=== PATIENT | male | born 1945 | race Caucasian/White ===

== ENCOUNTER 2018-07-08 08:28 | Outpatient (CLI) | payer MEDICARE ==
--- NOTE | 2018-07-08 11:41 | CT ---
CT ABDOMEN AND PELVIS WITH AND WITHOUT IV CONTRAST: HISTORY: Microhematuria. Chronic prostatitis. COMPARISON: 11/25/2013 FINDINGS: There are old left-sided rib fractures. The lung bases are clear. The patient is post cholecystecto my. The liver, spleen, pancreas, and adrenal glands are normal. No calculi are seen in the kidneys, ureters, or urinary bladder. A small cyst (approximately 1 cm) i s seen at the inferior pole of the right kidney, which is stable since 11/25/2013. No enhancing donna l mass is seen. There is normal trace contrast excretion into the pelvicalyceal systems, ureters, an d urinary bladder. There is prostatic enlargement. No free air, free fluid, or lymphadenopathy is seen in the abdomen or pelvis. There are vascular pancho cifications without evidence of aneurysmal dilatation of the abdominal aorta. Degenerative changes a re present in the spine. A normal appearing appendix is present. There is sigmoid diverticulosis. Bilateral fat-containing inguinal hernias are present. IMPRESSION: 1. No CT evidence of urinary tract calculi or obstruction. 2. Small right renal cyst. 3. Sigmoid diverticulosis. 4. Prostatic enlargement. POS: [facility]
== END 2018-07-08 08:29 | disposition home or self-care (01) ==
LOC: BICCT 08:28
PROVIDERS: ATTEND Urology
DX: N41.1 Chronic prostatitis (principal); R31.29 Other microscopic hematuria; N28.1 Cyst of kidney, acquired; K57.30 Diverticulosis of large intestine without perforation or abscess without bleeding; N40.0 Benign prostatic hyperplasia without lower urinary tract symptoms
CPT/HCPCS: 74178

== ENCOUNTER 2018-08-08 07:34 | Outpatient (CLI) | payer MEDICARE ==
--- NOTE | 2018-08-08 10:44 | MRI ---
LEFT KNEE MRI WITHOUT IV CONTRAST: HISTORY: S83.242A, tear of medial meniscus left knee. History of left knee pain, history of left knee surgery . COMPARISON: 11/15/2008. FINDINGS: There is no significant abnormal joint effusion. There is an irregular posterior root tear of the me dial meniscus with more horizontal component tear extending from the posterior horn into the body. I t also demonstrates evidence for a posterior root tear with blunting as well as free edge irregularit y of primarily the body, evidence for a probable degenerative-type tear. There is a small osteochond ral focus involving the lateral aspect of the lateral femoral condyle without significant adjacent ab normal marrow edema. The anterior cruciate ligament appears intact. The posterior cruciate ligament appears to be somewhat thickened and has some increased signal within it compared to the prior 2008 study, evidence for posterior cruciate ligament mucoid degeneration versus some interstitial longitud inal incomplete tearing. Medial and lateral collateral ligaments appear intact. Quadriceps and thomas llar tendons are intact. Mild focal cartilage loss involving the central patellar facet and both med ial and lateral compartments. No significant acute abnormal marrow signal. IMPRESSION: Medial meniscal tear with irregular tear at the posterior root and a horizontal component tear extend ing into the body. Posterior root tear of the lateral meniscus with free edge irregularity and blunt ing of the body of the meniscus, evidence for tears. Somewhat thickened appearing PCL when compared to the prior study possibly representing some posterior cruciate ligament mucoid degeneration versus an incomplete thickness interstitial tear. Small osteochondral focus involving the lateral aspect of the lateral femoral condyle without significant abnormal adjacent marrow edema. Mild generalized ca rtilage loss. Motion artifact on numerous sequences lowers the sensitivity of this study. POS: [facility]
== END 2018-08-08 07:35 | disposition home or self-care (01) ==
LOC: TBSIIMAG 07:34
PROVIDERS: ATTEND Orthopaedic Surgery
DX: S83.242A Other tear of medial meniscus, current injury, left knee, initial encounter (principal)

== ENCOUNTER 2019-12-30 20:56 | Observation (INO) | payer MEDICARE ==
[2019-12-30 22:40] LABS: Troponin I Less than 0.010 ng/mL (< 0.028)
[2019-12-30] MEDS ORDERED: Morphine 4 MG/ML VIAL ONE (22:46)
[2019-12-30] MEDS ORDERED: Simethicone Chewable 80 MG TAB PO PRN (23:19)
[2019-12-30] MEDS ORDERED: Nitroglycerin 0.4 MG TAB (25 Tab Bottle) PO PRN (23:19)
[2019-12-30] MEDS ORDERED: HumaLOG 300 UNITS/3 ML VIAL SC PRN ×2 (23:19→23:51)
[2019-12-30] MEDS ORDERED: Dextrose 50% Abboject 50 ML SYRINGE SLOW IVP PRN (23:19)
[2019-12-30] MEDS ORDERED: Dextrose 5% in Water 1,000 ML IV PRN (23:19)
[2019-12-30] MEDS ORDERED: Ondansetron ODT 4 MG TAB SL PRN (23:20)
[2019-12-30] MEDS ORDERED: Ondansetron PF 4 MG/2 ML Vial IVP PRN (23:20)
[2019-12-30] MEDS ORDERED: Acetaminophen 325 MG TAB PO PRN (23:20)
[2019-12-30] MEDS ORDERED: Lidocaine 2% Viscous Solution 10 ML, Aluminum & Magnesium Hydroxide 30 ML SSW SCH (23:45)
[2019-12-30 23:55] VITALS: BMI 28.8
--- NOTE | 2019-12-31 00:44 | HP ---
PRIMARY CARE PHYSICIAN: Chavo Chavez MD. CHIEF COMPLAINT: Epigastric and chest pain. HISTORY OF PRESENT ILLNESS: The patient is a 74-year-old male with a past medical history significant for hypertension, hyperlipidemia, diabetes type 2. He presents to the ER today for pain in his stomach and chest. This morning he woke up and felt like he had a gas pocket in the lower right side of his abdomen. It worked its way up and across his chest to the nipple line. Currently, the pain is still sitting on the right hand side of his chest, but he also feels it in his upper epigastric area. He did continue to go to work today and just "felt bad" throughout the entire shift. When he got home, he made the decision to go to the ER and while his was driving him, he vomited one time. He stated that it did help some with the pain. He denies shortness of breath, diaphoresis or ill contacts. In the [place] ER, they gave him a GI cocktail and 2 morphine injections along with Zofran. His GI cocktail helped more than the morphine he stated. He completed an abdomen and pelvic CT while there. The patient was then transferred over to the [place] [facility]. In the [place] [facility], an EKG was performed, which shows sinus rhythm with a first-degree AV block and he was given a dose of morphine. PAST MEDICAL HISTORY: Hypertension, hyperlipidemia, diabetes type 2, atrial fibrillation. PAST SURGICAL HISTORY: Cholecystectomy, tonsillectomy, bilateral knee surgeries. ALLERGIES: NO KNOWN DRUG ALLERGIES. MEDICATIONS: Flomax 0.4mg PO daily [place] 3 1 cap PO BID Avodart 0.5 mg PO daily Aspirin 325 mg PO daily Norvasc 5 mg PO daily Vitamin D3 2000 unit PO daily Lisinopril 20 mg PO BID Synthroid 137 mcg PO daily Lantus 50 unit SQ qPM Januvia 100 mg PO daily metformin 1000 mg PO BID SOCIAL HISTORY: The patient lives with his at home. They are both retired lab workers, but still work p.r.n. Denies drinking alcohol, tobacco use or any illicit drug use. FAMILY HISTORY: Negative for anything significant at this time. REVIEW OF SYSTEMS: All other review of systems negative, listed in the chart. PHYSICAL EXAMINATION: VITAL SIGNS: Blood pressure 139/64, pulse 78, respiratory rate 22, temp 98 degrees oral, pain 5/10, O2 saturation 95% on room air. GENERAL: The patient appears nontoxic, in no apparent distress. HEAD: Atraumatic, normocephalic. Eyes, PERRLA. Extraocular muscles intact. NECK: Supple. Normal range of motion. Trachea is midline. No JVD. RESPIRATORY: Clear to auscultation bilaterally. No wheezing or rales. Normal chest expansion. CARDIOVASCULAR: Heart regular rate and rhythm. No murmurs, no gallops, no rubs. ABDOMEN: Slightly tender in the upper epigastric area and slightly distended. Bowel sounds normal. No pulsatile masses. No rigidity. No guarding. EXTREMITIES: Right lower extremity is slightly larger than the left. Patient has had multiple workups which reveal no DVT, multiple varicose veins. NEUROLOGIC: Speech normal. The patient, alert, oriented to person, place, and time. No focal deficits. PSYCHIATRIC: Normal affect. Normal behavior. LABORATORY DATA: White blood cells 8.3, hemoglobin 13.5, hematocrit 40.8, D- dimer 0.33. Sodium 137, potassium 4.5, BUN 22, creatinine 1.43, GFR 49, glucose 185. Troponin less than 0.010. Albumin 4.5. IMAGING: EKG sinus rhythm with first-degree AV block, 78 beats per minute. Chest x-ray showed no acute findings. CT of the abdomen and pelvis with contrast showed no significant change since his last one in 2018. IMPRESSION and PLAN: 1. Chest pain. Ordered a stress test for the morning due to the patient's risk factors, so far has had a negative cardiac workup. To be monitored on telemetry overnight. The patient has a autocad technician, Dr. Palmer. An echo has been ordered for the morning. Orthostatics to be completed with vital signs. 2. Epigastric pain. GI cocktail along with simethicone ordered to see if this helps to fully relieve the patient's pain 3. Hypertension, blood pressure stable at this time. We will continue home medications. 4. Hyperlipidemia- stable 5. Diabetes type 2. We will monitor blood sugars before meals and at bedtime and cover with sliding scale insulin. 6. Atrial fibrillation. Patient states that he will go in atrial fibrillation about twice a year and usually comes out of it within an hour or so, we will continue to monitor patient on telemetry overnight. 7. Gastrointestinal and deep venous thrombosis prophylaxis. 8. Full code. 9. Surrogate decision maker will be his Valeri Reid, phone . Discussed patient with Dr. Goins. Job ID: [id number] MTDD
[2019-12-31 02:34] LABS: Troponin I Less than 0.010 ng/mL (< 0.028)
[2019-12-31] MEDS ORDERED: Levothyroxine Sodium 25 MCG TAB PO SCH (06:00)
[2019-12-31] MEDS ORDERED: Nitroglycerin 2% Ointment 1 INCH/1 GM Packet TOP SCH (06:00)
[2019-12-31] MEDS ORDERED: Levothyroxine Sodium 112 MCG TAB PO SCH (06:00)
[2019-12-31] MEDS ORDERED: metFORMIN 500 MG TAB PO SCH (08:00)
[2019-12-31 08:08] VITALS: BP 146/67; TEMP 98.3
[2019-12-31] MEDS ORDERED: Lisinopril 20 MG TAB PO SCH (09:00)
[2019-12-31] MEDS ORDERED: Aspirin 325 MG TAB PO SCH (09:00)
[2019-12-31] MEDS ORDERED: Alogliptin 25 MG TAB PO SCH (09:00)
[2019-12-31] MEDS ORDERED: Amlodipine 5 MG TAB PO SCH (09:00)
[2019-12-31] MEDS ORDERED: Aspirin 325 mg Enteric Coated Tablet PO SCH (09:00)
[2019-12-31] MEDS ORDERED: Prevnar 13-Val Conj/PF 0.5 ML SYRINGE IM ONE (09:00)
[2019-12-31] MEDS ORDERED: Enoxaparin Sodium 40 MG/0.4 ML SYRINGE SC SCH (09:00)
[2019-12-31] MEDS ORDERED: Tamsulosin HCl 0.4 MG CAP PO SCH (09:00)
[2019-12-31] MEDS ORDERED: Dutasteride 0.5 MG CAP PO SCH (09:00)
[2019-12-31] MEDS ORDERED: Famotidine/PF 20 mg/2ml Vial SLOW IVP SCH (09:00)
[2019-12-31] MEDS ORDERED: Regadenoson 0.4 MG/5 ML SYRINGE ONE (09:14)
--- NOTE | 2019-12-31 11:52 | NM ---
Exam: Nuclear medicine cardiac stress with EF and wall motion History: Chest pain TECHNIQUE: Patient was administered 10 mCi of technetium 99m sestamibi for rest imaging and 31.50 mCi of technetium 99m sestamibi for stress imaging. Cardiac gating was performed FINDINGS: Homogeneous distribution of the radiotracer throughout the left ventricle. No filling defect. No reve rsibility. TID is 1.07 End-diastolic volume: 91 mL End systolic volume: 21 mL Cardiac gating: Normal wall motion and thickening. 77% ejection fraction IMPRESSION: 1. No reversibility or fixed defect 2. Normal wall motion and thickening. 77% ejection fraction.
[2019-12-31] MEDS ORDERED: Insulin Glargine 50 UNITS in Pre-Filled Syringe 1 EACH SC SCH (21:00)
[2019-12-31] MEDS ORDERED: Non-Formulary Item 1 EACH (Insulin Glargine,Hum.Rec.Anlog [Lantus Solostar] 50 UNIT) SQ SCH (21:00)
--- NOTE | 2020-01-01 02:03 | DIS ---
DATE OF ADMISSION: 12/30/2019 DATE OF DISCHARGE: 12/31/2019 FINAL DIAGNOSES: Abdominal/chest pain. Acute coronary syndrome was ruled out with normal troponin levels and radionucleotide stress test, which came back negative. LVEF was estimated at 77% and there was no any fixed or reversible defect. HOSPITAL COURSE: The patient is a 74-year-old male, who was admitted to the hospital with acute onset of abdominal pain, which primary started in the right groin, went up to the epigastric area at chest. The patient vomited during this episode, came to the emergency room for further evaluation. This was in bolus on the ER, where he received GI cocktail and two morphine injections along with Zofran and was transferred for further management and diagnostic workup to our hospital. During ER visit, his white count was normal. Hemoglobin was 13.8. D-dimer is 0.33. Sodium of 137, potassium 4.5, BUN 22, creatinine 1.43. EKG showed sinus rhythm with first-degree AV block, 7 to 8 beats per minute. Chest x-ray showed no acute findings and CT of the abdomen and pelvis with contrast showed no significant change since his last one in 2018. The patient got admitted to the telemetry floor. He had additional troponins done which came back normal and also he underwent nuclear medicine stress test, which showed LVEF estimated at 77% and nonreversible fixed defect was present during this examination. The patient is doing well. He does not have more pain anymore. He is able to ambulate without any discomfort. He is discharged home in good condition. His vitals within normal limits. DISCHARGE MEDICATIONS: His medications at the time of discharge: 1. Flomax 0.4 mg once a day. 2. [place]-3 fatty acids one capsule twice a day. 3. Avodart 0.5 mg daily. 4. Aspirin 325 mg daily. 5. Amlodipine 5 mg daily. 6. Ibuprofen 800 mg q.8 hours p.r.n. as needed. 7. Vitamin D3 of 2000 units once a day. 8. Lisinopril 20 mg twice a day. 9. Levothyroxine 137 mcg daily. 10. Insulin glargine 50 units once a day. 11. Sitagliptin, which is Januvia 100 mg once a day. 12. Metformin 1000 mg twice a day. FOLLOWUP: He is going to follow up with his primary care physician in 1 week to discuss possibility of GI evaluation, although he had several colonoscopies by Dr. Guillaume in the past and he was not to have any colonoscopy for at least 10 years. Job ID: [id number]
--- NOTE | 2020-01-09 13:00 | EKG ---
Test Reason : CP Blood Pressure : / mmHG Vent. Rate : 068 BPM Atrial Rate : 068 BPM P-R Int : 226 ms QRS Dur : 086 ms QT Int : 392 ms P-R-T Axes : 033 035 056 degrees QTc Int : 416 ms Sinus rhythm with 1st degree A-V block Otherwise normal ECG Confirmed by LUIS COLORADO DO ([id number]), fashion editor JORGE L YAP ([id number]) on 01/09/2020 1:00:24 PM Referred By: Confirmed By:LUIS COLORADO DO
== END 2019-12-31 13:55 | disposition home or self-care (01) ==
LOC: ERS 20:56 → 2NO 21:51
PROVIDERS: ADMIT Internal Medicine; ATTEND Internal Medicine
DX: R10.13 Epigastric pain (principal); R07.9 Chest pain, unspecified; I10 Essential (primary) hypertension; E78.5 Hyperlipidemia, unspecified; E11.9 Type 2 diabetes mellitus without complications; I48.91 Unspecified atrial fibrillation; Z79.4 Long term (current) use of insulin; Z79.82 Long term (current) use of aspirin; Z79.899 Other long term (current) drug therapy
CPT/HCPCS: 78452; 80061; 82962 ×2; 84484 ×2; 93005; 93017; 93306; 94760; 96372; 96374; 96376; 99285; A9500; G0378 ×3; 36415; 36416; J1650; J2270; J2785; S0028

== ENCOUNTER 2021-12-19 06:28 | Outpatient (CLI) | payer MEDICARE ==
[2021-12-19 08:06] LABS: Hemoglobin 14.8 g/dL (13.5-17.5); Mean Corpuscular HGB CONC 33.6 g/dL (32.0-36.0); Mean Corpuscular Hemoglobin 30.3 pg (27.0-33.0); Mean Corpuscular Volume 90.2 fl (81.2-95.1); Mean Platelet Volume 9.6 fl (7.4-10.4); Platelet Count 169 10x3/uL (150-450); RBC Distribution Width 14.3 % (11.5-14.5); Red Blood Cell (RBC) Count 4.88 10x6/uL (4.32-5.72); White Blood Cell (WBC) Count 7.1 10x3/uL (3.5-10.5)
[2021-12-19 08:17] LABS: PTT 25.9 sec (22.0-33.0); Prothrombin Time 10.7 sec (9.5-12.1)
[2021-12-19 08:31] LABS: Bilirubin Neg (Negative); Blood, Urine Negative (Negative); Clarity Clear (Clear); Glucose, Urine (Dipstick) >=1000 mg/dL (Negative); Ketone, Urine Negative (Negative); Leukocyte Negative (Negative); Nitrite Negative (Negative); Protein, Urine (Dipstick) Negative (Neg-Trace); Specific Gravity, Urine 1.015 (1.002-1.036); Urobilinogen Normal mg/dL (Less than 2)
[2021-12-19 08:37] LABS: Anion Gap 13 mmol/L (10-20); BUN (Urea Nitrogen) 17 mg/dL (8.4-25.7); Calc. Creatinine Clearance 0 mL/min (70-130); Calcium 9.4 mg/dL (7.8-10.44); Carbon Dioxide 28 mmol/L (23-31); Chloride 102 mmol/L (98-107); Glucose 119 mg/dL (83-110); Potassium 4.2 mmol/L (3.5-5.1); Sodium 139 mmol/L (136-145)
[2021-12-19 08:54] LABS: Bacteria/HPF None Seen HPF (None Seen); RBC/HPF 0-3 HPF (0-3); Squamous Epithelial None Seen HPF (0-3); WBC/HPF 0-3 HPF (0-3)
[2021-12-19 16:10] LABS: SARS-CoV-2 PCR by NAA Not Detected (NotDetected)
== END 2021-12-19 06:29 | disposition home or self-care (01) ==
LOC: LABBT 06:28
PROVIDERS: ATTEND Urology
DX: Z01.818 Encounter for other preprocedural examination (principal); Z12.5 Encounter for screening for malignant neoplasm of prostate; N41.1 Chronic prostatitis; E11.9 Type 2 diabetes mellitus without complications; N28.1 Cyst of kidney, acquired; N40.1 Benign prostatic hyperplasia with lower urinary tract symptoms; R35.0 Frequency of micturition; R81 Glycosuria; R16.1 Splenomegaly, not elsewhere classified; Z20.822 Contact with and (suspected) exposure to COVID-19
CPT/HCPCS: 80048; 81001; 85027; 85610; 85730; 87086; 93005; U0003; U0005; 93010

== ENCOUNTER 2021-12-20 06:12 | Day surgery (SDC) | payer MEDICARE ==
[2021-12-19 10:54] VITALS: BMI 29.4
[2021-12-20] MEDS ORDERED: Midazolam HCl 2 mg/2 ml Vial ONE (08:52)
[2021-12-20] MEDS ORDERED: Propofol 500 MG/50 ML VIAL ONE (08:53)
[2021-12-20] MEDS ORDERED: fentaNYL Citrate/PF 100 MCG/2 ML SYRINGE ONE (08:53)
[2021-12-20] MEDS ORDERED: Levofloxacin 500 mg/D5W 100 ml Premix Bag ONE (08:54)
[2021-12-20] MEDS ORDERED: Lidocaine 1% PF 5 ML VIAL ONE (09:01)
[2021-12-20] MEDS ORDERED: Dexamethasone 20 MG/5 ML VIAL ONE (09:01)
[2021-12-20] MEDS ORDERED: PROPOFOL 200 MG/20 ML VIAL ONE (09:01)
[2021-12-20] MEDS ORDERED: Phenazopyridine HCl 100 MG TAB ONE (10:01)
== END 2021-12-20 11:50 | disposition home or self-care (01) ==
LOC: SDC 06:12
PROVIDERS: ATTEND Urology
PROC: 0TJB8ZZ Inspection of Bladder, Via Natural or Artificial Opening Endoscopic (ICD-10-PCS; principal; 2021-12-20)
DX: N40.1 Benign prostatic hyperplasia with lower urinary tract symptoms (principal); N13.8 Other obstructive and reflux uropathy; N35.912 Unspecified bulbous urethral stricture, male; E78.5 Hyperlipidemia, unspecified; I10 Essential (primary) hypertension; E03.9 Hypothyroidism, unspecified; E11.9 Type 2 diabetes mellitus without complications; Z79.4 Long term (current) use of insulin; Z79.82 Long term (current) use of aspirin; Z79.84 Long term (current) use of oral hypoglycemic drugs; Z79.890 Hormone replacement therapy; Z79.899 Other long term (current) drug therapy
CPT/HCPCS: 36416; J1100; J1956; J2250; J2704

== ENCOUNTER 2022-01-12 10:55 | Outpatient (CLI) | payer MEDICARE ==
[2022-01-12 13:03] LABS: Bilirubin Neg (Negative); Blood, Urine Negative (Negative); Clarity Clear (Clear); Glucose, Urine (Dipstick) >=1000 mg/dL (Negative); Ketone, Urine Negative (Negative); Leukocyte Negative (Negative); Nitrite Negative (Negative); Protein, Urine (Dipstick) Negative (Neg-Trace); Urobilinogen Normal mg/dL (Less than 2)
[2022-01-12 13:04] LABS: Hemoglobin 14.3 g/dL (13.5-17.5); Mean Corpuscular HGB CONC 34.4 g/dL (32.0-36.0); Mean Corpuscular Hemoglobin 30.4 pg (27.0-33.0); Mean Corpuscular Volume 88.3 fl (81.2-95.1); Mean Platelet Volume 10.1 fl (7.4-10.4); Platelet Count 160 10x3/uL (150-450); RBC Distribution Width 14.5 % (11.5-14.5); Red Blood Cell (RBC) Count 4.71 10x6/uL (4.32-5.72); White Blood Cell (WBC) Count 7.5 10x3/uL (3.5-10.5)
[2022-01-12 13:11] LABS: Bacteria/HPF None Seen HPF (None Seen); RBC/HPF 0-3 HPF (0-3); Squamous Epithelial 0-3 HPF (0-3); WBC/HPF 0-3 HPF (0-3)
[2022-01-12 13:33] LABS: Anion Gap 18 mmol/L (10-20); BUN (Urea Nitrogen) 26 mg/dL (8.4-25.7); Calc. Creatinine Clearance 0 mL/min (70-130); Calcium 9.2 mg/dL (7.8-10.44); Carbon Dioxide 22 mmol/L (23-31); Chloride 99 mmol/L (98-107); Glucose 223 mg/dL (83-110); Potassium 4.9 mmol/L (3.5-5.1); Sodium 134 mmol/L (136-145)
== END 2022-01-12 10:56 | disposition home or self-care (01) ==
LOC: LABBT 10:55
PROVIDERS: ATTEND Urology
DX: Z01.812 Encounter for preprocedural laboratory examination (principal); N41.1 Chronic prostatitis; Z87.898 Personal history of other specified conditions; Z12.5 Encounter for screening for malignant neoplasm of prostate; N40.1 Benign prostatic hyperplasia with lower urinary tract symptoms; R35.0 Frequency of micturition; E11.9 Type 2 diabetes mellitus without complications; R16.1 Splenomegaly, not elsewhere classified; F41.9 Anxiety disorder, unspecified; Z20.822 Contact with and (suspected) exposure to COVID-19
CPT/HCPCS: 80048; 81001; 85027; 85610; 85730; 87086; U0003; U0005

== ENCOUNTER → 2022-01-17 | Day surgery (SDC) | payer MEDICARE ==
[2022-01-16 09:20] VITALS: BMI 28.7
[~2022-01-17] MED LIST: B & O ONE; Fentanyl 100 MCG/2 ML VIAL ONE
== END | disposition home or self-care (01) ==
LOC: SDC 07:56
PROVIDERS: ATTEND Urology
DX: N40.1 Benign prostatic hyperplasia with lower urinary tract symptoms (principal); Z53.8 Procedure and treatment not carried out for other reasons; Z79.4 Long term (current) use of insulin; Z79.82 Long term (current) use of aspirin; Z79.84 Long term (current) use of oral hypoglycemic drugs; Z79.890 Hormone replacement therapy; Z79.899 Other long term (current) drug therapy
CPT/HCPCS: J3010

== ENCOUNTER 2022-04-06 11:23 | Outpatient (CLI) | payer MEDICARE ==
[2022-04-06 13:04] LABS: Hemoglobin 14.1 g/dL (13.5-17.5); Mean Corpuscular HGB CONC 34.6 g/dL (32.0-36.0); Mean Corpuscular Hemoglobin 29.9 pg (27.0-33.0); Mean Corpuscular Volume 86.4 fl (81.2-95.1); Mean Platelet Volume 10.2 fl (7.4-10.4); Platelet Count 168 10x3/uL (150-450); RBC Distribution Width 14.6 % (11.5-14.5); Red Blood Cell (RBC) Count 4.71 10x6/uL (4.32-5.72); White Blood Cell (WBC) Count 5.7 10x3/uL (3.5-10.5)
[2022-04-06 13:16] LABS: Bilirubin Neg (Negative); Blood, Urine Negative (Negative); Clarity Clear (Clear); Glucose, Urine (Dipstick) >=1000 mg/dL (Negative); Ketone, Urine Negative (Negative); Leukocyte Negative (Negative); Nitrite Negative (Negative); Protein, Urine (Dipstick) Negative (Neg-Trace); Specific Gravity, Urine 1.015 (1.002-1.036); Urobilinogen Normal mg/dL (Less than 2)
[2022-04-06 13:23] LABS: Bacteria/HPF None Seen HPF (None Seen); RBC/HPF 0-3 HPF (0-3); Squamous Epithelial 0-3 HPF (0-3); WBC/HPF 0-3 HPF (0-3)
[2022-04-06 13:25] LABS: PTT 27.8 sec (22.0-33.0); Prothrombin Time 11.2 sec (9.5-12.1)
[2022-04-06 13:32] LABS: Anion Gap 17 mmol/L (10-20); BUN (Urea Nitrogen) 18 mg/dL (8.4-25.7); Calc. Creatinine Clearance 0 mL/min (70-130); Calcium 9.3 mg/dL (7.8-10.44); Carbon Dioxide 23 mmol/L (23-31); Chloride 105 mmol/L (98-107); Estimated GFR 67; Glucose 129 mg/dL (83-110); Potassium 4.7 mmol/L (3.5-5.1); Sodium 140 mmol/L (136-145)
== END 2022-04-06 11:24 | disposition home or self-care (01) ==
LOC: LABBT 11:23
PROVIDERS: ATTEND Urology
DX: Z01.818 Encounter for other preprocedural examination (principal); Z12.5 Encounter for screening for malignant neoplasm of prostate; N40.1 Benign prostatic hyperplasia with lower urinary tract symptoms; R35.0 Frequency of micturition; N41.1 Chronic prostatitis; E11.9 Type 2 diabetes mellitus without complications; R81 Glycosuria; N28.1 Cyst of kidney, acquired; R16.1 Splenomegaly, not elsewhere classified; F41.9 Anxiety disorder, unspecified; Z20.822 Contact with and (suspected) exposure to COVID-19
CPT/HCPCS: 80048; 81001; 85027; 85610; 85730; 87086; 87811

== ENCOUNTER 2022-04-11 06:06 | Day surgery (SDC) | payer MEDICARE ==
[2022-04-10 12:52] VITALS: BMI 28.7
[2022-04-11] MEDS ORDERED: Propofol 1,000 MG/100 ML VIAL IV ONE (06:59)
[2022-04-11] MEDS ORDERED: fentaNYL Citrate/PF 100 MCG/2 ML SYRINGE ONE (06:59)
[2022-04-11] MEDS ORDERED: Levofloxacin 500 mg/D5W 100 ml Premix Bag ONE (07:10)
[2022-04-11] MEDS ORDERED: Ketorolac Tromethamine 30 MG/ML VIAL ONE (07:27)
[2022-04-11] MEDS ORDERED: Lidocaine 1% MPF 2 ML VIAL ONE (07:27)
[2022-04-11] MEDS ORDERED: PROPOFOL 200 MG/20 ML VIAL ONE (07:27)
[2022-04-11] MEDS ORDERED: B & O ONE (07:30)
[2022-04-11] MEDS ORDERED: HYDROcodone/Acetaminophen 5/325 mg Tablet ONE (08:57)
[2022-04-11] MEDS ORDERED: Oxybutynin 5 MG TAB ONE (09:15)
[2022-04-11] MEDS ORDERED: Phenazopyridine HCl 100 MG TAB ONE ×2 (09:15→09:16)
== END 2022-04-11 10:55 | disposition home or self-care (01) ==
LOC: SDC 06:06
PROVIDERS: ATTEND Urology
PROC: 0T7D8DZ Dilation of Urethra with Intraluminal Device, Via Natural or Artificial Opening Endoscopic (ICD-10-PCS; principal; 2022-04-11)
DX: N40.1 Benign prostatic hyperplasia with lower urinary tract symptoms (principal); R35.0 Frequency of micturition; N35.912 Unspecified bulbous urethral stricture, male; N32.89 Other specified disorders of bladder; E78.5 Hyperlipidemia, unspecified; I10 Essential (primary) hypertension; E03.9 Hypothyroidism, unspecified; E11.9 Type 2 diabetes mellitus without complications; Z79.4 Long term (current) use of insulin; Z79.82 Long term (current) use of aspirin; Z79.84 Long term (current) use of oral hypoglycemic drugs; Z79.890 Hormone replacement therapy; Z79.899 Other long term (current) drug therapy
CPT/HCPCS: 82962; C9740; 36416; J1885; J1956; J2704; L8699